=== PATIENT | female | born 1965 | race Hispanic/Latino ===

== ENCOUNTER 2025-07-19 21:12 | Emergency (ER) | payer SELFPAY ==
[~2025-07-19] VITALS: Ht 160 cm
--- NOTE | 2025-07-19 21:28 | ERN ---
ED Note History of Present Illness Stated Complaint: CP Chief Complaint: Chest Pain Time Seen by MD: 21:18 Dictation: Patient is a 65-year-old female who presented to the ER complaining of chest pain, stated that chest pain is pressure-like, radiated to the left arm, patient states that she felt the similar symptoms yesterday, he had improved too much attention and today she started having this similar chest discomfort. Patient also states that she was diagnosed recently hypertension of the been having headache for1 week, she called her physician in [place] who recommended to started on olmesartan 40/hydrochlorothiazide 12.5 mg daily. Allergies: Coded Allergies: No Known Drug Allergies (Unverified Allergy, Unknown, 07/19/25) Review of System Dictation NEGATIVE EXCEPT PER HPI Constitutional: Negative for fever,chills, and weight loss Eyes: Negative for injury, pain,redness, and discharge ENT: Negative for injury,pain or swelling Cardiovascular: Chest pain with radiation to left arm Respiratory: Negative for shortness of breath, cough, and wheezing, Abdomen/GI: Negative for abdominal pain, nausea, vomiting, diarrhea, and constipation Back: Negative for injury and pain : Negative for injury, bleeding and discharge MS/Extremity: Negative for injury and deformity Skin: Negative for rash, and discoloration Neuro: Negative for headache, weakness, numbness, tingling, and seizure Psych: Negative for suicide ideation, homicidal ideation, and hallucinations Initial Vital Sign VS Vital Signs Date Time Temp Pulse Resp B/P (MAP) Pulse Ox O2 Delivery O2 Flow Rate FiO2 07/19/25 21:32 98.6 84 18 162/87 98 07/19/25 22:44 Room Air* 0 21 Physical Exam Dictation General: awake, alert, NAD Head/Face: Normocephalic, atraumatic Eyes: PERRL, EOMI, vision at baseline ENT: oral cavity clear, TMs clear, no signs of infection Neck: Trachea midline, supple, no nuchal rigidity Cardiovascular: RRR, normal S1/S2, No MRGs, no JVD Respiratory: CTAB, no respiratory distress, No rales or wheezes Abdomen: Soft , no tender Skin: Warm, dry, normal turgor, no rash MS/Extremity: Pulses equal, no cyanosis, neurovascular intact, FROM Neuro: COAx4, GCS 15, strength 5/5, CN 2-12 intact, normal cerebellar exam, normal gait, Psych: Normal behavior, mood, and affect normal Results (Laboratory/Radiology) Laboratory/Radiology Laboratory Tests Test 07/19/25 21:31 White Blood Count 6.6 K/uL (4.8-10.8) Red Blood Count 4.72 MIL/uL (4.00-5.50) Hemoglobin 14.1 g/dL (12.0-16.0) Hematocrit 42.0 % (36-48) Mean Corpuscular Volume 89.0 fL (79-99) Mean Corpuscular Hemoglobin 29.9 pg (27.0-33.0) Mean Corpuscular Hemoglobin Concent 33.6 g/dL (32.0-36.0) Red Cell Distribution Width 11.9 % (11.0-15.5) Platelet Count 276 K/uL (130-400) Mean Platelet Volume 9.9 fL (7.5-10.5) Immature Granulocyte % (Auto) 0.3 % (0-1) Neutrophils (%) (Auto) 42.3 % (40.0-77.0) Lymphocytes (%) (Auto) 45.1 % (21.0-51.0) Monocytes (%) (Auto) 8.5 % (3.0-13.0) Eosinophils (%) (Auto) 2.7 % (0.0-8.0) Basophils (%) (Auto) 1.1 % (0.0-5.0) Neutrophils # (Auto) 2.8 K/uL (1.8-7.7) Lymphocytes # (Auto) 3.0 K/uL (1.0-4.8) Monocytes # (Auto) 0.6 K/uL (0.1-1.0) Eosinophils # (Auto) 0.18 K/uL (0.00-0.70) Basophils # (Auto) 0.07 K/uL (0.00-0.20) Absolute Immature Granulocyte (auto 0.02 K/uL (0-1) Nucleated Red Blood Cells 0.0 % (0.0-0.19) Sodium Level 139 mmol/L (136-145) Potassium Level 3.1 mmol/L (3.5-5.1) L Chloride Level 103 mmol/L (101-111) Carbon Dioxide Level 30 mmol/L (21-32) Blood Urea Nitrogen 26 mg/dL (7-18) H Creatinine 0.8 mg/dL (0.5-1.0) Glomerular Filtration Rate Calc 84 mL/min (>90) Random Glucose 113 mg/dL (70-105) H Total Calcium 9.2 mg/dL (8.5-10.1) Troponin I High Sensitivity 6 ng/L (4-50) EKG Comment: Sinus rhythm, heart rate 75, PR2 6, QT 392, ED Course ED Course Orders Procedure Category Date Status Time Cbc With Differential LAB 07/19/25 Complete 21:19 Basic Metabolic Panel LAB 07/19/25 Complete 21:19 Troponin I High LAB 07/19/25 Complete Sensitivity 21:19 Chest 1vw RAD 07/19/25 Resulted 21:19 Hydralazine 20mg Inj PHA 07/19/25 Complete (Apresoline 20mg In 22:00 12 Lead Ekg Tracing- EKG 07/19/25 Logged Technical 21:52 Potassium Chloride PHA 07/19/25 Complete 20meq Er (K-Dur/Klor- 22:30 Current Medications Medications (Trade) Dose Ordered Sig/Canelo Route PRN Reason Start Time Stop Time Status Last Admin Dose Admin Hydralazine HCl (APRESOLine 20MG INJ) 5 mg ONCE ONCE IV 07/19/25 22:00 07/19/25 22:07 DC Potassium Chloride (K-Dur/Klor-Con 20meq) 40 meq ONCE ONCE PO 07/19/25 22:30 07/19/25 22:31 DC 07/19/25 22:43 Vital Signs Date Time Temp Pulse Resp B/P (MAP) Pulse Ox O2 Delivery O2 Flow Rate FiO2 07/19/25 22:44 98.8 88 18 144/66 99 Room Air* 0 21 07/19/25 21:32 98.6 84 18 162/87 98 HEART Score Response (Comments) Value History: Low suspicion (0) 0 EKG: Normal 0 Age: 45-65yrs (+1) 1 Risk Factors: 1-2 risk factors (+1) 1 Initial Troponin: Normal limit (0) 0 HEART Score Risk: Low Risk for MACE (1-3) Total 2 Medical Decision Making MDM Patient is a 65-year-old female who presented to the ER complaining of chest pain, stated that chest pain is pressure-like, radiated to the left arm, patient states that she felt the similar symptoms yesterday, he had improved too much attention and today she started having this similar chest discomfort. Patient also states that she was diagnosed recently hypertension of the been having headache for1 week, she called her physician in [place] who recommended to started on olmesartan 40/hydrochlorothiazide 12.5 mg daily. Chest pain Uncontrolled hypertension Hypokalemia Order chest pain workup including EKG, chest x-ray, laboratory workup Troponin level 6 EKG within normal limits 3.1 DX & DISP Disposition: Discharge Departure Impression: Primary Impression: Chest pain Additional Impressions: Uncontrolled hypertension, Hypokalemia Condition: Stable Additional Instructions: RETURN TO ER FOR ANY ACUTE OR WORSENING SYMPTOMS. FOLLOW-UP IN 1-2 DAYS WITH PRIMARY PROVIDER FOR RECHECK OF TODAY'S SYMPTOMS. Wishes to take her home medication olmesartan/hydrochlorothiazide twice a day, cast with the patient the bedside. He must follow up with the primary care physician next 24 hours Time of Disposition: 22:48 VEGA BARRETT MD Jul 19, 2025 21:28
[2025-07-19 21:37] LABS: IMMATURE GRANULOCYTE ABSOLUTE 0.02 K/uL (0-1); NUCLEATED RED BLOOD CELLS 0.0 % (0.0-0.19); PLATELET COUNT (AUTO) 276 K/uL (130-400); RED BLOOD CELL COUNT(AUTO) 4.72 MIL/uL (4.00-5.50); RED CELL DISTRIBUTION WIDTH 11.9 % (11.0-15.5); WHITE BLOOD COUNT (AUTO) 6.6 K/uL (4.8-10.8)
[2025-07-19 21:49] LABS: CREATININE 0.8 mg/dL (0.5-1.0); GLOMERULAR FILTR. RATE CALC 84.0 mL/min (>90); GLUCOSE,RANDOM 113.0 mg/dL (70-105); SODIUM SERUM 139.0 mmol/L (136-145); UREA NITROGEN, BLOOD 26.0 mg/dL (7-18)
--- NOTE | 2025-07-19 21:52 | NUR ---
EKG 3556
--- NOTE | 2025-07-19 22:13 | HMCIMG ---
EXAM: CR Chest, 1 View. CLINICAL HISTORY: chest pain COMPARISON: None provided. FINDINGS: LUNGS: The lungs show no infiltrate or other acute finding. PLEURAL SPACES: No evidence of pleural effusion or pneumothorax. MEDIASTINUM: The cardiomediastinal silhouette is within normal limits. BONES: No aggressive appearing osseous lesion seen. IMPRESSION: No acute cardiopulmonary pathology is evident. /[place]
[2025-07-19] MEDS: PoTASSium chloRIDE 20MEQ ER 20 MEQ ERTAB PO ONE (22:43)
[2025-07-19 22:44] VITALS: BP 144/66; PULSE 88; RESP 18; TEMP 98.8; O2SAT 99
== END 2025-07-19 22:50 | disposition home or self-care (01) ==
LOC: EDH 21:12
DX: R07.89 Other chest pain (principal); I10 Essential (primary) hypertension; E87.6 Hypokalemia
CPT/HCPCS: 36415; 71045; 80048; 84484; 85025; 99284